=== PATIENT | male | born 1935 | race Caucasian/White ===

== ENCOUNTER 2020-03-17 12:35 | Outpatient (CLI) | payer OTHER, SELFPAY ==
--- NOTE | 2020-03-17 | CT_ITS ---
WS: [id number] CT CERVICAL SPINE HISTORY: CERVICALGIA TECHNIQUE: Contiguous 2.5 mm axial imaging performed through the entire cervical spine. Sagittal and coronal reformats also performed. All CT scans at [facility] use at least one of these do se optimization techniques: automated exposure control; mA and/or kV adjustment per patient size (inc ludes targeted exams where dose is matched to clinical indication); or iterative reconstruction. DLP: 2089.63 mGycm COMPARISON: None available. C3 retrolisthesis by 3.4 mm as compared to C2 and C4. Mild disc space narrowing at C3-4 and C6-7. No fractures. Craniocervical junction is normal. Lateral masses are aligned and the odontoid is intact. C2-C3: LEFT facet joint arthritis. Moderate narrowing of the LEFT facet joint. C3-C4: Diffuse osteophytic ridging encroaching upon the ventral thecal sac. There is moderate central and bilateral foraminal stenosis. Very shallow central disc protrusion also present. C4-C5: Normal. C5-C6: Diffuse osteophytic ridging asymmetric to the RIGHT. Mild encroachment upon the thecal sac. Mi ld central with moderate bilateral foraminal stenosis. C6-C7: Mild osteophytic ridging. No stenosis. C7-T1: Normal. Soft tissues are normal. Lung apices are clear. CT/CT cervical spin wo con* [id number] IMPRESSION: 1. 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 2. Mild central and moderate bilateral foraminal stenosis at C5-6.
== END 2020-03-17 12:36 | disposition home or self-care (01) ==
LOC: RADWPI 12:42
PROVIDERS: PCP Family Medicine; Visit Provider Emergency Medicine Emergency Medical Services
DX: M48.02 Spinal stenosis, cervical region (principal)
CPT/HCPCS: 72125

== ENCOUNTER → 2020-05-01 15:21 | Outpatient (BNVA) | payer OTHER, SELFPAY | PROVIDERS: PCP Family Medicine; Referring Provider Emergency Medicine Emergency Medical Services; Visit Provider Specialist | DX: R20.0 Anesthesia of skin (principal); R20.2 Paresthesia of skin; Z87.891 Personal history of nicotine dependence | CPT/HCPCS: 95886; 95908 ==

== ENCOUNTER → 2021-10-03 13:34 | Outpatient (BNVA) | payer OTHER, SELFPAY | PROVIDERS: PCP Family Medicine; Visit Provider Podiatrist Foot & Ankle Surgery | DX: L85.1 Acquired keratosis [keratoderma] palmaris et plantaris (principal) | CPT/HCPCS: 17110 ==

== ENCOUNTER → 2021-10-03 13:36 | Outpatient (BNVA) | payer OTHER, SELFPAY | PROVIDERS: PCP Family Medicine; Visit Provider Podiatrist Foot & Ankle Surgery | DX: M21.611 Bunion of right foot (principal) | CPT/HCPCS: 73630 ==

== ENCOUNTER → 2021-11-07 14:48 | Outpatient (BNVA) | payer OTHER, SELFPAY | PROVIDERS: PCP Family Medicine; Visit Provider Podiatrist Foot & Ankle Surgery | DX: M79.671 Pain in right foot | CPT/HCPCS: 99213 ==

== ENCOUNTER 2022-09-20 07:56 | Outpatient (CLI) | payer MEDICARE, SELFPAY ==
--- NOTE | 2022-09-20 08:32 | USCV_ITS ---
Billy Fermin Age: 87 Gender: M : 1935 Exam Date: 09/20/2022 08:43 Ordering Phys: José Mosley Technologist: CT Exam Location: [facility] [place] Indication: Angina BP: / HR: Rhythm: Sinus Technical Quality: Adequate MEASUREMENTS (Male / Female) Normal Values FINDINGS Left Ventricle Normal left ventricular size and systolic function, EF 70%.mild left ventricular hypertrophy. No regional wall motion abnormalities. Grade I/IV diastolic dysfunction (abnormal relaxation filling pattern), normal to mildly elevated filling pressures. Right Ventricle Normal right ventricular size and systolic function. Right Atrium The right atrium is normal in size. Left Atrium The left atrium is normal in size. Mitral Valve Aortic Valve Thickened aortic valve. Tricuspid Valve Trace tricuspid valve regurgitation. Trace tricuspid valve regurgitation. Pulmonic Valve No gross abnormalities no Pericardium Normal pericardium without effusion. Aorta Normal ascending aorta dimension. IVC The inferior vena cava appears normal. CONCLUSIONS Normal left ventricular size and systolic function, EF 70%.mild left ventricular hypertrophy. No regional wall motion abnormalities. Grade I/IV diastolic dysfunction (abnormal relaxation filling pattern), normal to mildly elevated filling pressures. Thickened aortic valve. Thickened mitral valve. Trace tricuspid valve regurgitation. Estimated pulmonary artery peak systolic pressure within normal limit There is no pericardial effusion. No similar previous studies are available for comparison Dr Miley Moncada MD [facility] (Electronically Signed) Final Date: 20 September 2022 15:10 S
== END 2022-09-20 07:57 | disposition home or self-care (01) ==
PROVIDERS: PCP Family Medicine; Visit Provider Nurse Practitioner Family
DX: I20.9 Angina pectoris, unspecified (principal); I08.3 Combined rheumatic disorders of mitral, aortic and tricuspid valves
CPT/HCPCS: 93306

== ENCOUNTER 2024-05-24 20:00 | Outpatient (CLI) | payer OTHER, SELFPAY | END 2024-05-24 20:01 | disposition home or self-care (01) | LOC: SLEEP 23:47 | PROVIDERS: PCP Family Medicine; Visit Provider Nurse Practitioner Family | DX: R06.02 Shortness of breath (principal) | CPT/HCPCS: 95810 ==